=== PATIENT | female | born 1965 | race Caucasian/White ===

== ENCOUNTER 2023-03-13 18:17 | Emergency (ER) | payer BC ==
[~2023-03-13] VITALS: Ht 167.6 cm; Wt 117.9 kg
[2023-03-13] MEDS ORDERED: EPINEPHrine Hydrochloride 1 MG in SODIUM CHLORIDE 0.9% 250 ML IV ONE (18:30)
[2023-03-13] MEDS ORDERED: methylPREDNISolone sod succ 125 MG VIAL IV ONE (18:40)
[2023-03-13] MEDS ORDERED: Albuterol Sulf/Ipratropium 3 ML VIAL NEB ONE ×2 (18:40→18:45)
[2023-03-13 18:50] LABS: HEMATOCRIT 58.4 % (37.0-47.0); MEAN CELL VOLUME 96.7 fl (81.0-99.0); MEAN CORPUSCULAR HGB 32.6 pg (27.0-31.0); MEAN CORPUSCULAR HGB CONC 33.7 g/dl (33.0-37.0); MEAN PLATELET VOLUME 9.9 fl (9.6-12.3); NUCLEATED RED BLOOD CELL 0.1 % (0.0-0.0); PLATELET COUNT AUTOMATED 240 10*3/uL (130-400); RED BLOOD COUNT 6.04 10*6/uL (4.10-5.10); RED CELL DISTRI WIDTH 15.9 % (0-14.5); WHITE BLOOD COUNT 17.9 10*3/uL (4.8-10.8)
[2023-03-13] MEDS ORDERED: Albuterol Sulfate 2.5 MG/3 ML VIAL NEB ONE ×2 (18:55)
[2023-03-13 19:03] LABS: ACT PARTIAL THROMBO TIME 28.8 SECONDS (20.0-32.1)
[2023-03-13 19:04] LABS: MANUAL DIFF REFLEX YES
[2023-03-13 19:11] LABS: ALKALINE PHOSPHATASE 110 U/L (46-116); BUN 7 mg/dl (9-23); CHLORIDE 100 mmol/L (98-107); LIPASE 24 U/L (12-53); POTASSIUM 3.7 mmol/L (3.4-5.1); SGPT/ALT 29 U/L (5-49); TOTAL PROTEIN 6.4 gm/dL (6.0-8.0)
[2023-03-13 19:46] LABS: PLATELET SUFFICIENCY NORMAL (NORMAL); SPHEROCYTES FEW; TOTAL CELLS COUNTED 100 #CELLS
[2023-03-13 19:47] LABS: STOMATOCYTE FEW
[2023-03-13 19:50] LABS: ATYPICAL LYMPHS 3 % (0-0); BASOPHILS 1 % (0-1)
[2023-03-13] MEDS ORDERED: ROCURONIUM BROMIDE 50 MG/5 ML SYRINGE IV ONE (22:11)
[2023-03-13] MEDS ORDERED: ETOMIDATE 20 MG/10 ML VIAL IV ONE (22:11)
[2023-03-14] MEDS ORDERED: SODIUM BICARBONATE 50 MEQ/50 ML VIAL IV ONE (16:14)
[2023-03-14] MEDS ORDERED: EPINEPHrine Hydrochloride 1 MG/10 ML SYR IV ONE (16:14)
[2023-03-14] MEDS ORDERED: Lactated Ringer's Solution 1,000 ML BAG IV ONE (16:14)
[2023-03-14] MEDS ORDERED: DEXTROSE 5% 500 ML BAG IV ONE (16:14)
== END 2023-03-13 20:51 | disposition short-term general hospital (02) ==
LOC: ED 18:17
PROVIDERS: Emergency Medicine
DX: I46.9 Cardiac arrest, cause unspecified (principal); R10.2 Pelvic and perineal pain

== ENCOUNTER → 2023-04-18 | Outpatient (CLI) | payer BC ==
[2023-04-18 13:58] LABS: HEMATOCRIT 49.8 % (37.0-47.0); MEAN CORPUSCULAR HGB 28.3 pg (27.0-31.0); MEAN CORPUSCULAR HGB CONC 31.1 g/dl (33.0-37.0); MEAN PLATELET VOLUME 9.7 fl (9.6-12.3); RED BLOOD COUNT 5.47 10*6/uL (4.10-5.10); RED CELL DISTRI WIDTH 14.6 % (0-14.5); WHITE BLOOD COUNT 9.7 10*3/uL (4.8-10.8)
[2023-04-18 14:22] LABS: ALKALINE PHOSPHATASE 127 U/L (46-116); BUN 12 mg/dl (9-23); CHLORIDE 103 mmol/L (98-107); CHOLESTEROL 158 mg/dL (<200); CPK 38 U/L (34-171); LDL CHOLESTEROL 94 mg/dL (9-159); POTASSIUM 4.5 mmol/L (3.4-5.1); SGPT/ALT 22 U/L (5-49); TOTAL PROTEIN 6.9 gm/dL (6.0-8.0); TRIGLYCERIDES 102 mg/dl (<150)
[2023-04-18 14:24] LABS: VITAMIN D, 25-HYDROXY 10.1 ng/mL (30-100)
== END | disposition home or self-care (01) ==
LOC: LAB 13:24
PROVIDERS: ATTEND Family Medicine
DX: E78.00 Pure hypercholesterolemia, unspecified (principal); J44.9 Chronic obstructive pulmonary disease, unspecified; E55.9 Vitamin D deficiency, unspecified; R06.02 Shortness of breath; J98.4 Other disorders of lung; R60.9 Edema, unspecified

== ENCOUNTER → 2023-04-29 | Outpatient (CLI) | payer BC ==
[~2023-04-29] MED LIST: IOHEXOL 300 MG/ML 100 ML VIAL IV ONE
== END | disposition home or self-care (01) ==
LOC: CT 15:00
PROVIDERS: ATTEND Family Medicine
DX: J98.11 Atelectasis (principal); R91.8 Other nonspecific abnormal finding of lung field; F17.210 Nicotine dependence, cigarettes, uncomplicated; I25.10 Atherosclerotic heart disease of native coronary artery without angina pectoris; K76.0 Fatty (change of) liver, not elsewhere classified; E27.8 Other specified disorders of adrenal gland

== ENCOUNTER → 2023-05-15 | Outpatient (CLI) | payer BC ==
[~2023-05-15] MED LIST changes: +GADOTERATE MEGLUMINE 10 MMOL/20 ML VIAL IV ONE; -IOHEXOL 300 MG/ML 100 ML VIAL IV ONE; +SODIUM CHLORIDE 0.9% 50 ML IV ONE
== END | disposition home or self-care (01) ==
LOC: MRI 02:25
PROVIDERS: ATTEND Family Medicine
DX: E27.9 Disorder of adrenal gland, unspecified (principal)

== ENCOUNTER 2023-12-21 13:31 | Inpatient (IN) | payer SELFPAY ==
[~2023-12-21] VITALS: Ht 157.5 cm; Wt 114.6 kg
[2023-12-21] MEDS ORDERED: NITROGLYCERIN 0.4 MG BOT SL ONE (13:35)
[2023-12-21] MEDS ORDERED: Albuterol Sulfate 2.5 MG/3 ML VIAL NEB ONE (13:35)
[2023-12-21] MEDS ORDERED: MAGNESIUM SULFATE 50 ML IV ONE (13:35)
[2023-12-21] MEDS ORDERED: FUROSEMIDE 40 MG/4 ML VIAL IV ONE (13:35)
[2023-12-21 13:39] VITALS: BP 151/84
[2023-12-21 14:00] LABS: BASO # 0.1 10*3/uL (0.0-0.1); BASO % 0.6 % (0.0-1.0); EOS % 0.2 % (1.0-4.0); HEMATOCRIT 56.2 % (37.0-47.0); MEAN CELL VOLUME 90.9 fl (81.0-99.0); MEAN CORPUSCULAR HGB 26.7 pg (27.0-31.0); MEAN CORPUSCULAR HGB CONC 29.4 g/dl (33.0-37.0); MEAN PLATELET VOLUME 9.8 fl (9.6-12.3); MONO # 0.7 10*3/uL (0.1-1.0); MONO % 5.7 % (3.0-9.0); NEUT # 10.5 10*3/uL (2.3-7.9); NEUT % 81.4 % (47.0-73.0); PLATELET COUNT AUTOMATED 204 10*3/uL (130-400); RED BLOOD COUNT 6.18 10*6/uL (4.10-5.10); RED CELL DISTRI WIDTH 17.1 % (0-14.5); WHITE BLOOD COUNT 12.9 10*3/uL (4.8-10.8)
[2023-12-21 14:07] LABS: ABG O2 SATURATION 95.4 % (94.0-98.0); ARTERIAL BLOOD GAS PO2 86.5 mmHg (83.0-108.0)
[2023-12-21 14:08] LABS: ABG BASE EXCESS 4.3 mmol/L (-2.0-3.0)
[2023-12-21 14:13] LABS: ARTERIAL BLOOD GAS PH 7.243 (7.350-7.450)
[2023-12-21 14:21] LABS: POTASSIUM 5.1 mmol/L (3.4-5.1)
[2023-12-21 14:30] VITALS: BP 150/87
[2023-12-21 15:24] LABS: ABG BASE EXCESS 2.7 mmol/L (-2.0-3.0); ABG O2 SATURATION 96.6 % (94.0-98.0); ARTERIAL BLOOD GAS PO2 96.8 mmHg (83.0-108.0)
[2023-12-21 15:30] VITALS: BP 147/95
[2023-12-21 15:31] LABS: ARTERIAL BLOOD GAS PH 7.238 (7.350-7.450)
[2023-12-21] MEDS ORDERED: Albuterol Sulf/Ipratropium 3 ML VIAL NEB SCH (17:20)
[2023-12-21 20:00] VITALS: BP 148/79
[2023-12-21 20:20] LABS: ABG O2 SATURATION 96.1 % (94.0-98.0); ARTERIAL BLOOD GAS PH 7.266 (7.350-7.450); ARTERIAL BLOOD GAS PO2 81.2 mmHg (83.0-108.0)
[2023-12-21 20:22] LABS: ABG BASE EXCESS 4.2 mmol/L (-2.0-3.0)
[2023-12-21] MEDS ORDERED: methylPREDNISolone sod succ 40 MG VIAL IV SCH (22:00)
[2023-12-21] MEDS ORDERED: AZITHROMYCIN 250 ML IV SCH (22:00)
[2023-12-22] VITALS: BP 132/67
[2023-12-22 04:00] VITALS: BP 141/72
[2023-12-22 06:13] LABS: BASO % 0.1 % (0.0-1.0); HEMATOCRIT 53.4 % (37.0-47.0); MEAN CELL VOLUME 90.5 fl (81.0-99.0); MEAN CORPUSCULAR HGB 26.6 pg (27.0-31.0); MEAN CORPUSCULAR HGB CONC 29.4 g/dl (33.0-37.0); MEAN PLATELET VOLUME 10.7 fl (9.6-12.3); MONO # 0.2 10*3/uL (0.1-1.0); NEUT # 6.8 10*3/uL (2.3-7.9); NEUT % 89.8 % (47.0-73.0); PLATELET COUNT AUTOMATED 180 10*3/uL (130-400); RED CELL DISTRI WIDTH 16.3 % (0-14.5); WHITE BLOOD COUNT 7.5 10*3/uL (4.8-10.8)
[2023-12-22 06:15] LABS: POTASSIUM 5.1 mmol/L (3.4-5.1)
[2023-12-22 08:00] VITALS: BP 125/69
[2023-12-22 08:23] LABS: ABG O2 SATURATION 93.3 % (94.0-98.0); ARTERIAL BLOOD GAS PH 7.309 (7.350-7.450); ARTERIAL BLOOD GAS PO2 67.3 mmHg (83.0-108.0)
[2023-12-22 08:27] LABS: ABG BASE EXCESS 6.4 mmol/L (-2.0-3.0)
[2023-12-22] MEDS ORDERED: NITROGLYCERIN 0.2 MG PATCH T SCH (10:00)
[2023-12-22] MEDS ORDERED: Enoxaparin Sodium 60 MG/0.6 ML SYR SC SCH (10:00)
[2023-12-22] MEDS ORDERED: METOPROLOL SUCCINATE XR 25 MG TAB PO SCH (10:00)
[2023-12-22] MEDS ORDERED: SPIRONOLACTONE 25 MG TAB PO SCH (10:00)
[2023-12-22] MEDS ORDERED: BUMETANIDE 1 MG/4 ML VIAL IV SCH (10:00)
[2023-12-22] MEDS ORDERED: FUROSEMIDE 40 MG/4 ML VIAL IV SCH (10:00)
[2023-12-22 12:00] VITALS: BP 150/86
[2023-12-22] MEDS ORDERED: Cefepime Hydrochloride 2 GM,IV 1 EA in SODIUM CHLORIDE 0.9% 50 ML IV SCH (14:00)
[2023-12-22] MEDS ORDERED: GUAIFENESIN 600 MG TAB ER PO SCH (14:25)
[2023-12-22] MEDS ORDERED: Nicotine 21 MG PATCH T SCH (14:25)
[2023-12-22 16:00] VITALS: BP 129/75
[2023-12-22] MEDS ORDERED: ASPIRIN ENTERIC COATED 81 MG TAB PO SCH (18:05)
[2023-12-22 20:00] VITALS: BP 132/78
[2023-12-23] VITALS: BP 142/87
[2023-12-23 04:00] VITALS: BP 138/87
[2023-12-23 07:51] LABS: ABG O2 SATURATION 95.2 % (94.0-98.0); ARTERIAL BLOOD GAS PH 7.36 (7.350-7.450); ARTERIAL BLOOD GAS PO2 74.3 mmHg (83.0-108.0)
[2023-12-23 08:00] VITALS: BP 146/89
[2023-12-23 08:01] LABS: ABG BASE EXCESS 7.3 mmol/L (-2.0-3.0)
[2023-12-23 12:00] VITALS: BP 126/52; BP 149/76
[2023-12-23 12:07] LABS: HEMATOCRIT 51.8 % (37.0-47.0); MEAN CORPUSCULAR HGB 26.8 pg (27.0-31.0); MEAN CORPUSCULAR HGB CONC 30.9 g/dl (33.0-37.0); MEAN PLATELET VOLUME 10.1 fl (9.6-12.3); PLATELET COUNT AUTOMATED 198 10*3/uL (130-400); RED BLOOD COUNT 5.96 10*6/uL (4.10-5.10); RED CELL DISTRI WIDTH 16.1 % (0-14.5); WHITE BLOOD COUNT 14.6 10*3/uL (4.8-10.8)
[2023-12-23 12:14] LABS: MANUAL DIFF REFLEX YES; MEAN CELL VOLUME 86.9 fl (81.0-99.0)
[2023-12-23 12:27] LABS: TOTAL CELLS COUNTED 100 #CELLS
[2023-12-23 12:28] LABS: BUN 36 mg/dl (9-23); CHLORIDE 93 mmol/L (98-107); PLATELET SUFFICIENCY NORMAL (NORMAL); POTASSIUM 4.8 mmol/L (3.4-5.1)
[2023-12-23] MEDS ORDERED: methylPREDNISolone sod succ 40 MG VIAL IV SCH (14:00)
[2023-12-23 16:00] VITALS: BP 147/91
[2023-12-23 20:00] VITALS: BP 138/76
[2023-12-23] MEDS ORDERED: NYSTATIN 15 GM BOT T SCH (22:00)
[2023-12-24] VITALS: BP 133/78
[2023-12-24 04:00] VITALS: BP 146/83
[2023-12-24 06:27] LABS: BUN 41 mg/dl (9-23); CHLORIDE 94 mmol/L (98-107); POTASSIUM 4.8 mmol/L (3.4-5.1)
[2023-12-24 06:42] LABS: HEMATOCRIT 50.2 % (37.0-47.0); MEAN CELL VOLUME 86.3 fl (81.0-99.0); MEAN CORPUSCULAR HGB 26.6 pg (27.0-31.0); MEAN CORPUSCULAR HGB CONC 30.9 g/dl (33.0-37.0); MEAN PLATELET VOLUME 11.1 fl (9.6-12.3); PLATELET COUNT AUTOMATED 186 10*3/uL (130-400); RED BLOOD COUNT 5.82 10*6/uL (4.10-5.10); RED CELL DISTRI WIDTH 16.4 % (0-14.5); WHITE BLOOD COUNT 13.2 10*3/uL (4.8-10.8)
[2023-12-24 06:47] LABS: MANUAL DIFF REFLEX YES
[2023-12-24 07:41] LABS: OVALOCYTES FEW; PLATELET SUFFICIENCY NORMAL (NORMAL); POLYCHROMASIA SLIGHT; TOTAL CELLS COUNTED 100 #CELLS
[2023-12-24 07:54] VITALS: BP 152/85
[2023-12-24] MEDS ORDERED: BUMETANIDE 1 MG/4 ML VIAL IV SCH (10:00)
[2023-12-24] MEDS ORDERED: Enoxaparin Sodium 40 MG/0.4 ML SYR SC SCH (10:00)
[2023-12-24 12:00] VITALS: BP 133/71
[2023-12-24 16:00] VITALS: BP 120/66
[2023-12-24 20:00] VITALS: BP 127/71
[2023-12-25] VITALS: BP 140/81
[2023-12-25 04:00] VITALS: BP 130/69
[2023-12-25 05:07] LABS: ALKALINE PHOSPHATASE 70 U/L (46-116); BUN 38 mg/dl (9-23); CHLORIDE 92 mmol/L (98-107); POTASSIUM 4.5 mmol/L (3.4-5.1); SGPT/ALT 42 U/L (5-49)
[2023-12-25 06:11] LABS: HEMATOCRIT 51.1 % (37.0-47.0); MEAN CELL VOLUME 86.6 fl (81.0-99.0); MEAN CORPUSCULAR HGB 27.1 pg (27.0-31.0); MEAN CORPUSCULAR HGB CONC 31.3 g/dl (33.0-37.0); MEAN PLATELET VOLUME 11.4 fl (9.6-12.3); PLATELET COUNT AUTOMATED 163 10*3/uL (130-400); RED CELL DISTRI WIDTH 16.3 % (0-14.5); WHITE BLOOD COUNT 11.1 10*3/uL (4.8-10.8)
[2023-12-25 06:18] LABS: MANUAL DIFF REFLEX YES
[2023-12-25 07:04] LABS: PLATELET SUFFICIENCY NORMAL (NORMAL); TOTAL CELLS COUNTED 100 #CELLS
[2023-12-25 08:00] VITALS: BP 139/75
[2023-12-25] MEDS ORDERED: DEXTROSE 10 % IN WATER 250 ML IV PRN (08:20)
[2023-12-25] MEDS ORDERED: BUMETANIDE 0.5 MG TAB PO SCH (10:00)
[2023-12-25] MEDS ORDERED: INSULIN REGULAR, HUMAN 1 UNIT/0.01 ML SC SCH ×2 (11:30→16:30)
[2023-12-25 11:57] LABS: ABG O2 SATURATION 93.8 % (94.0-98.0); ARTERIAL BLOOD GAS PH 7.38 (7.350-7.450)
[2023-12-25 11:58] LABS: ABG BASE EXCESS 13.6 mmol/L (-2.0-3.0)
[2023-12-25] MEDS ORDERED: Water, Sterile 10 ML VIAL ONE (13:07)
[2023-12-25 16:00] VITALS: BP 127/69
[2023-12-25] MEDS ORDERED: methylPREDNISolone sod succ 40 MG VIAL IV SCH (18:00)
[2023-12-25 20:00] VITALS: BP 128/77
[2023-12-25 22:00] VITALS: BP 128/77
[2023-12-26] VITALS: BP 120/65
[2023-12-26 04:00] VITALS: BP 129/79
[2023-12-26 04:24] LABS: BASO % 0.2 % (0.0-1.0); MEAN CELL VOLUME 88.1 fl (81.0-99.0); MEAN CORPUSCULAR HGB 27.4 pg (27.0-31.0); MEAN CORPUSCULAR HGB CONC 31.1 g/dl (33.0-37.0); MEAN PLATELET VOLUME 10.6 fl (9.6-12.3); MONO # 0.7 10*3/uL (0.1-1.0); MONO % 5.6 % (3.0-9.0); NEUT % 87.3 % (47.0-73.0); PLATELET COUNT AUTOMATED 170 10*3/uL (130-400); RED BLOOD COUNT 6.24 10*6/uL (4.10-5.10); RED CELL DISTRI WIDTH 17.2 % (0-14.5); WHITE BLOOD COUNT 12.6 10*3/uL (4.8-10.8)
[2023-12-26 04:47] LABS: ALKALINE PHOSPHATASE 73 U/L (46-116); BUN 35 mg/dl (9-23); CHLORIDE 92 mmol/L (98-107); POTASSIUM 4.8 mmol/L (3.4-5.1); SGPT/ALT 91 U/L (5-49); TOTAL PROTEIN 6.2 gm/dL (6.0-8.0)
[2023-12-26] MEDS ORDERED: ACETAMINOPHEN 325 MG TAB PO PRN (05:15)
[2023-12-26 08:00] VITALS: BP 135/75
[2023-12-26] MEDS ORDERED: acetaZOLAMIDE 250 MG TAB PO SCH (10:00)
[2023-12-26 15:35] VITALS: BP 128/72
[2023-12-26 19:52] VITALS: BP 126/71
[2023-12-26 23:50] VITALS: BP 129/66
[2023-12-27 03:53] VITALS: BP 126/68
[2023-12-27 05:34] LABS: BUN 32 mg/dl (9-23); CHLORIDE 95 mmol/L (98-107); POTASSIUM 4.6 mmol/L (3.4-5.1)
[2023-12-27 06:34] LABS: BASO % 0.2 % (0.0-1.0); HEMATOCRIT 53.2 % (37.0-47.0); MEAN CELL VOLUME 86.5 fl (81.0-99.0); MEAN CORPUSCULAR HGB CONC 31.2 g/dl (33.0-37.0); MEAN PLATELET VOLUME 11.8 fl (9.6-12.3); MONO # 0.6 10*3/uL (0.1-1.0); NEUT # 9.6 10*3/uL (2.3-7.9); NEUT % 87.6 % (47.0-73.0); PLATELET COUNT AUTOMATED 155 10*3/uL (130-400); RED BLOOD COUNT 6.15 10*6/uL (4.10-5.10); RED CELL DISTRI WIDTH 17.1 % (0-14.5); WHITE BLOOD COUNT 10.9 10*3/uL (4.8-10.8)
[2023-12-27 08:00] VITALS: BP 111/58
[2023-12-27] MEDS ORDERED: Ketorolac Tromethamine 30 MG/ML VIAL IV ONE (08:00)
[2023-12-27] MEDS ORDERED: predniSONE 10 MG TAB PO SCH (10:00)
[2023-12-27 12:00] VITALS: BP 116/69
[2023-12-27 16:00] VITALS: BP 122/70
[2023-12-27 19:53] VITALS: BP 123/67
[2023-12-27 23:51] VITALS: BP 100/68
[2023-12-28 03:51] VITALS: BP 99/69
[2023-12-28 05:29] LABS: BUN 40 mg/dl (9-23); CHLORIDE 96 mmol/L (98-107); POTASSIUM 4.3 mmol/L (3.4-5.1)
[2023-12-28 06:04] LABS: BASO % 0.1 % (0.0-1.0); EOS # 0.1 10*3/uL (0.0-0.4); EOS % 0.4 % (1.0-4.0); HEMATOCRIT 52.6 % (37.0-47.0); MEAN CELL VOLUME 87.5 fl (81.0-99.0); MEAN CORPUSCULAR HGB 26.6 pg (27.0-31.0); MEAN CORPUSCULAR HGB CONC 30.4 g/dl (33.0-37.0); MEAN PLATELET VOLUME 11.5 fl (9.6-12.3); MONO % 7.6 % (3.0-9.0); NEUT # 10.9 10*3/uL (2.3-7.9); NEUT % 79.2 % (47.0-73.0); PLATELET COUNT AUTOMATED 164 10*3/uL (130-400); RED BLOOD COUNT 6.01 10*6/uL (4.10-5.10); RED CELL DISTRI WIDTH 15.6 % (0-14.5); WHITE BLOOD COUNT 13.7 10*3/uL (4.8-10.8)
[2023-12-28 08:00] VITALS: BP 108/58
[2023-12-28 12:00] VITALS: BP 106/61
[2023-12-28 16:00] VITALS: BP 106/62
[2023-12-28 20:00] VITALS: BP 116/63
[2023-12-29] VITALS: BP 126/72
[2023-12-29 06:10] LABS: BUN 37 mg/dl (9-23); CHLORIDE 99 mmol/L (98-107)
[2023-12-29 06:25] LABS: BASO % 0.1 % (0.0-1.0); EOS # 0.2 10*3/uL (0.0-0.4); EOS % 1.5 % (1.0-4.0); HEMATOCRIT 51.4 % (37.0-47.0); MEAN CELL VOLUME 87.6 fl (81.0-99.0); MEAN CORPUSCULAR HGB 26.4 pg (27.0-31.0); MEAN CORPUSCULAR HGB CONC 30.2 g/dl (33.0-37.0); MEAN PLATELET VOLUME 11.6 fl (9.6-12.3); NEUT # 9.3 10*3/uL (2.3-7.9); NEUT % 75.5 % (47.0-73.0); PLATELET COUNT AUTOMATED 154 10*3/uL (130-400); RED BLOOD COUNT 5.87 10*6/uL (4.10-5.10); RED CELL DISTRI WIDTH 15.8 % (0-14.5); WHITE BLOOD COUNT 12.3 10*3/uL (4.8-10.8)
[2023-12-29 08:00] VITALS: BP 117/69
[2023-12-29 12:00] VITALS: BP 120/68
[2023-12-29 16:00] VITALS: BP 122/71
[2023-12-29 20:00] VITALS: BP 105/59
[2023-12-30] VITALS: BP 120/71
[2023-12-30 08:00] VITALS: BP 126/69
[2023-12-30] MEDS ORDERED: BUMETANIDE0.5 MG PO (08:33)
[2023-12-30] MEDS ORDERED: ACETAZOLAMIDE250 MG PO (08:33)
[2023-12-30] MEDS ORDERED: METOPROLOL SUCC25 M2 PO ×2 (08:33→08:34)
[2023-12-30] MEDS ORDERED: ASPIRIN ADULT L81 M2 PO (08:33)
[2023-12-30] MEDS ORDERED: PREDNISONE10 MG PO (08:33)
[2023-12-30] MEDS ORDERED: Ipratropium Brom3 ML NEB ×2 (08:33→08:34)
[2023-12-30 15:34] VITALS: BP 118/65
== END 2023-12-30 19:05 | disposition home or self-care (01) | DRG 280 ==
LOC: ED 13:31 → ICCU 14:59 → EDHOLD 14:59 → ICCU 15:14
PROVIDERS: Emergency Medicine; Internal Medicine; Internal Medicine Critical Care Medicine; ADMIT Internal Medicine; ATTEND Internal Medicine
PROC: 5A09357 Assistance with Respiratory Ventilation, Less than 24 Consecutive Hours, Continuous Positive Airway Pressure (ICD-10-PCS; principal; 2023-12-21)
PROC: 5A09357 Assistance with Respiratory Ventilation, Less than 24 Consecutive Hours, Continuous Positive Airway Pressure (ICD-10-PCS; 2023-12-22)
PROC: 5A09357 Assistance with Respiratory Ventilation, Less than 24 Consecutive Hours, Continuous Positive Airway Pressure (ICD-10-PCS; 2023-12-23)
PROC: 5A09357 Assistance with Respiratory Ventilation, Less than 24 Consecutive Hours, Continuous Positive Airway Pressure (ICD-10-PCS; 2023-12-24)
PROC: 5A0935A Assistance with Respiratory Ventilation, Less than 24 Consecutive Hours, High Flow/Velocity Cannula (ICD-10-PCS; 2023-12-24)
PROC: 5A09357 Assistance with Respiratory Ventilation, Less than 24 Consecutive Hours, Continuous Positive Airway Pressure (ICD-10-PCS; 2023-12-25)
PROC: 5A0935A Assistance with Respiratory Ventilation, Less than 24 Consecutive Hours, High Flow/Velocity Cannula (ICD-10-PCS; 2023-12-25)
PROC: 5A09357 Assistance with Respiratory Ventilation, Less than 24 Consecutive Hours, Continuous Positive Airway Pressure (ICD-10-PCS; 2023-12-26)
PROC: 5A0935A Assistance with Respiratory Ventilation, Less than 24 Consecutive Hours, High Flow/Velocity Cannula (ICD-10-PCS; 2023-12-26)
PROC: 5A09357 Assistance with Respiratory Ventilation, Less than 24 Consecutive Hours, Continuous Positive Airway Pressure (ICD-10-PCS; 2023-12-27)
PROC: 5A0935A Assistance with Respiratory Ventilation, Less than 24 Consecutive Hours, High Flow/Velocity Cannula (ICD-10-PCS; 2023-12-27)
PROC: 5A09357 Assistance with Respiratory Ventilation, Less than 24 Consecutive Hours, Continuous Positive Airway Pressure (ICD-10-PCS; 2023-12-28)
PROC: 5A0935A Assistance with Respiratory Ventilation, Less than 24 Consecutive Hours, High Flow/Velocity Cannula (ICD-10-PCS; 2023-12-28)
PROC: 5A09357 Assistance with Respiratory Ventilation, Less than 24 Consecutive Hours, Continuous Positive Airway Pressure (ICD-10-PCS; 2023-12-29)
PROC: 5A09357 Assistance with Respiratory Ventilation, Less than 24 Consecutive Hours, Continuous Positive Airway Pressure (ICD-10-PCS; 2023-12-30)
DX: I11.0 Hypertensive heart disease with heart failure (principal); I50.33 Acute on chronic diastolic (congestive) heart failure; I21.4 Non-ST elevation (NSTEMI) myocardial infarction; J18.9 Pneumonia, unspecified organism; J96.21 Acute and chronic respiratory failure with hypoxia; J96.22 Acute and chronic respiratory failure with hypercapnia; J44.1 Chronic obstructive pulmonary disease with (acute) exacerbation; J44.0 Chronic obstructive pulmonary disease with (acute) lower respiratory infection; E87.3 Alkalosis; N17.9 Acute kidney failure, unspecified; E87.29 Other acidosis; Z68.42 Body mass index [BMI] 45.0-49.9, adult; F17.210 Nicotine dependence, cigarettes, uncomplicated; R73.03 Prediabetes; D75.1 Secondary polycythemia; I27.20 Pulmonary hypertension, unspecified; E66.01 Morbid (severe) obesity due to excess calories; R91.1 Solitary pulmonary nodule; J98.6 Disorders of diaphragm; E27.8 Other specified disorders of adrenal gland; I25.10 Atherosclerotic heart disease of native coronary artery without angina pectoris; R62.7 Adult failure to thrive; R53.81 Other malaise; Z71.6 Tobacco abuse counseling; Z91.198 Patient's noncompliance with other medical treatment and regimen for other reason; T50.2X5A Adverse effect of carbonic-anhydrase inhibitors, benzothiadiazides and other diuretics, initial encounter; Y92.238 Other place in hospital as the place of occurrence of the external cause

== ENCOUNTER 2024-03-15 14:45 | Emergency (ER) | payer SELFPAY ==
[~2024-03-15] VITALS: Wt 108.9 kg
[~2024-03-15 14:45] MED LIST changes: +ACETAZOLAMIDE250 MG PO; +ASPIRIN ADULT L81 M2 PO; +BUMETANIDE0.5 MG PO; -GADOTERATE MEGLUMINE 10 MMOL/20 ML VIAL IV ONE; +Ipratropium Brom3 ML NEB; +METOPROLOL SUCC25 M2 PO; +PREDNISONE10 MG PO; -SODIUM CHLORIDE 0.9% 50 ML IV ONE
[2024-03-15] MEDS ORDERED: NOREPINEPHRINE BITARTRATE/D5W 250 ML IV ONE (15:04)
[2024-03-15 15:05] LABS: MEAN CELL VOLUME 99.8 fl (81.0-99.0); MEAN CORPUSCULAR HGB 28.2 pg (27.0-31.0); MEAN CORPUSCULAR HGB CONC 28.3 g/dl (33.0-37.0); MEAN PLATELET VOLUME 10.6 fl (9.6-12.3); NUCLEATED RED BLOOD CELL 0.2 % (0.0-0.0); PLATELET COUNT AUTOMATED 202 10*3/uL (130-400); RED BLOOD COUNT 4.11 10*6/uL (4.10-5.10); RED CELL DISTRI WIDTH 17.1 % (0-14.5); WHITE BLOOD COUNT 14.6 10*3/uL (4.8-10.8)
[2024-03-15 15:10] LABS: MANUAL DIFF REFLEX YES
[2024-03-15 15:17] LABS: ACT PARTIAL THROMBO TIME 32.8 SECONDS (20.0-32.1)
[2024-03-15] MEDS ORDERED: Ketamine Hydrochloride 500 MG/10 ML VIAL IV ONE (15:25)
[2024-03-15] MEDS ORDERED: FUROSEMIDE 40 MG/4 ML VIAL IV ONE (15:25)
[2024-03-15 15:26] LABS: ALKALINE PHOSPHATASE 87 U/L (46-116); BUN 11 mg/dl (9-23); CHLORIDE 97 mmol/L (98-107); POTASSIUM 4.4 mmol/L (3.4-5.1); SGPT/ALT 26 U/L (5-49); TOTAL PROTEIN 4.7 gm/dL (6.0-8.0)
[2024-03-15 15:40] LABS: ABG O2 SATURATION 99.4 % (94.0-98.0)
[2024-03-15 15:45] LABS: ARTERIAL BLOOD GAS PH 7.029 (7.350-7.450)
[2024-03-15 15:46] LABS: ABG BASE EXCESS -7.7 mmol/L (-2.0-3.0); ARTERIAL BLOOD GAS PO2 366.9 mmHg (83.0-108.0)
[2024-03-15 15:58] LABS: ATYPICAL LYMPHS 1 % (0-0); BASOPHILS 1 % (0-1); TOTAL CELLS COUNTED 100 #CELLS
[2024-03-15 15:59] LABS: OVALOCYTES FEW; PLATELET SUFFICIENCY NORMAL (NORMAL)
[2024-03-15] MEDS ORDERED: NOREPINEPHRINE BITARTRATE/D5W 250 ML IV SCH (17:20)
[2024-03-15] MEDS ORDERED: HYDROmorphONE Hydrochloride 1 MG/ML SYR IV ONE (17:45)
[2024-03-16] MEDS ORDERED: ATROPINE SULFATE 1 MG/10 ML SYR IV ONE (13:49)
[2024-03-16] MEDS ORDERED: EPINEPHrine Hydrochloride 1 MG/10 ML SYR IV ONE (13:49)
[2024-03-16] MEDS ORDERED: SODIUM BICARBONATE 50 MEQ/50 ML SYR IV ONE (13:49)
== END 2024-03-15 17:15 | disposition short-term general hospital (02) ==
LOC: ED 14:45
PROVIDERS: Emergency Medicine; Nurse Practitioner
DX: I46.9 Cardiac arrest, cause unspecified (principal); J44.9 Chronic obstructive pulmonary disease, unspecified; I50.9 Heart failure, unspecified; I21.3 ST elevation (STEMI) myocardial infarction of unspecified site; J96.90 Respiratory failure, unspecified, unspecified whether with hypoxia or hypercapnia; I48.20 Chronic atrial fibrillation, unspecified